=== PATIENT | male | born 1935 | race Caucasian/White ===

== ENCOUNTER 2018-02-18 07:26 | Emergency (ER) | payer OTHER ==
[~2018-02-18] VITALS: Ht 172.7 cm; Wt 76.2 kg
[2018-02-18 07:26] VITALS: BP_SYST 153
--- NOTE | 2018-02-18 07:26 | NUR ---
BROUGHT BACK TO BED #6 AND TRIAGED, REPORT GIVEN TO AGNIESZKA
--- NOTE | 2018-02-18 07:43 | NUR ---
PT AAOX4, ABLE TO VERBALIZE NEEDS. PT C/O PAIN AND DIFFICULTY W/ MOVEMENT OF JAW. PT STATES HE WENT TO URGENT CARE LAST FRIDAY AND WAS DIAGNOSED WITH TMJ AND GIVEN PAIN MEDS AND MUSCLE RELAXERS BUT IS STILL HAVING PAIN. PT STATES HX OF HTN.
--- NOTE | 2018-02-18 07:57 | NUR ---
ER at bedside examining patient.
[2018-02-18] MEDS ORDERED: HYDROcodone/ACETAMIN 5-325 MG TAB (NORCO/ VICODIN) PO ONE (08:15)
[2018-02-18] MEDS ORDERED: NS 500 ML IV ONE (08:15)
--- NOTE | 2018-02-18 08:59 | NUR ---
RECIEVED CALL FROM LAB. TECH TO REDRAW LABS D/T HEMOLYSIS OF BLOOD SAMPLE. NOTIFIED.
[2018-02-18] MEDS ORDERED: IOHEXOL 100 ML IV ONE (09:50)
--- NOTE | 2018-02-18 09:58 | NUR ---
LAB AT BEDSIDE TO [facility]RAW LABS.
[2018-02-18 10:16] LABS: ANION GAP 4 (5-15); CALCIUM 8.9 mg/dL (8.4-11.0); CHLORIDE 102 mmol/L (98-107); CREATININE 0.93 mg/dL (0.55-1.30); GLUCOSE 91 mg/dL (70-99); POTASSIUM 4.4 mmol/L (3.5-5.1); SODIUM SERUM 136 mmol/L (136-145); UREA NITROGEN, BLOOD 21 mg/dL (8-21)
[2018-02-18 10:24] LABS: ALANINE AMINOTRANSFERASE 21 U/L (12-78); ALBUMIN 2.8 g/dL (3.4-4.8); ASPARTATE AMINOTRANSFERASE 17 U/L (10-37); TOTAL BILIRUBIN 0.4 mg/dL (0.0-1.0)
--- NOTE | 2018-02-18 10:38 | NUR ---
PT TAKEN OFF UNIT FOR CT, ACCOMPANIED BY DRIVER'S LICENSE EXAMINER.
--- NOTE | 2018-02-18 10:57 | NUR ---
PT BACK ON UNIT FROM CT.
--- NOTE | 2018-02-18 12:29 | NUR ---
Pt resting at this time , eyes closed, patient states pain improving at this time. VS WNL.
[2018-02-18 13:24] VITALS: BP_SYST 146
--- NOTE | 2018-02-18 13:24 | NUR ---
Patient given written and verbal discharge instructions and verbalizes understanding. ER MD discussed with patient the results and treatment provided. Patient in stable condition. ID arm band removed. IV catheter removed intact and dressing applied, no active bleeding. Rx of NORCO given. Patient educated on pain management and to follow up with PMD. Pain Scale 0/10. Opportunity for questions provided and answered. Medication side effect fact sheet provided.
== END 2018-02-18 13:24 | disposition home or self-care (01) ==
LOC: SED 07:26
DX: M26.621 Arthralgia of right temporomandibular joint (principal); I10 Essential (primary) hypertension
CPT/HCPCS: 36415; 70487; 80053; 93005; 99285; J7030; Q9967

== ENCOUNTER 2020-01-16 17:28 | Emergency (ER) | payer OTHER ==
[~2020-01-16] VITALS: Ht 175.3 cm; Wt 77.1 kg
[2020-01-16 17:36] VITALS: BP_SYST 124
[2020-01-16 19:02] LABS: ANION GAP 6 (5-15); CALCIUM 8.8 mg/dL (8.4-11.0); CHLORIDE 102 mmol/L (98-107); CREATININE 0.95 mg/dL (0.55-1.30); GLUCOSE 88 mg/dL (70-99); POTASSIUM 4.7 mmol/L (3.5-5.1); SODIUM SERUM 135 mmol/L (136-145); UREA NITROGEN, BLOOD 24 mg/dL (8-21)
[2020-01-16 19:03] LABS: HEMATOCRIT 40.6 % (36-54); MONOCYTES # (AUTO) 0.8 K/uL (0.0-1.0); RED CELL DISTRIBUTION WIDTH 14.6 % (9.0-15.0)
[2020-01-16 19:09] LABS: BASOPHILS # (AUTO) 0.1 K/uL (0.0-0.2); BASOPHILS % (AUTO) 0.9 % (0.0-2.0); EOSINOPHILS # (AUTO) 0.2 K/uL (0.0-0.4); EOSINOPHILS % (AUTO) 1.5 % (0.0-4.0); HEMOGLOBIN 13.3 g/dL (14.0-18.0); LYMPHOCYTES # (AUTO) 1.6 K/uL (1.0-5.5); MEAN CORPUSCULAR HEMOGLOBIN 31 pg (27-31); MEAN CORPUSCULAR HGB CONC 33 % (32-36); MEAN CORPUSCULAR VOLUME 93 fL (79.0-98.0); MONOCYTES % (AUTO) 7.9 % (1.7-9.3); NEUTROPHILS # (AUTO) 7.6 K/uL (1.8-7.7); NEUTROPHILS % (AUTO) 73.7 % (40.0-70.0); RED BLOOD CELL COUNT(AUTO) 4.37 MIL/uL (4.2-6.2); WHITE BLOOD COUNT (AUTO) 10.3 K/uL (4.8-10.8)
[2020-01-16 19:14] LABS: ALANINE AMINOTRANSFERASE 17 U/L (12-78); ALBUMIN 3.3 g/dL (3.4-4.8); ASPARTATE AMINOTRANSFERASE 23 U/L (10-37); BILIRUBIN,DIRECT 0.1 mg/dL (0.0-0.3); LIPASE 138 U/L (73-393); TOTAL BILIRUBIN 0.5 mg/dL (0.0-1.0)
[2020-01-16] MEDS ORDERED: metroNIDAZOLE 500 mg/NS 100 ML IV ONE (19:15)
[2020-01-16] MEDS ORDERED: cefTRIAXone 1 GM in D5W 50 ML IV ONE (19:15)
[2020-01-16 19:19] LABS: PLATELET COUNT (AUTO) 300 K/uL (130-430)
[2020-01-16] MEDS ORDERED: cefTRIAXone 1 GM VIAL ONE (20:04)
[2020-01-16 22:15] VITALS: BP_SYST 164
== END 2020-01-16 22:15 | disposition short-term general hospital (02) ==
LOC: SED 17:28
DX: K35.80 Unspecified acute appendicitis (principal)
CPT/HCPCS: 36415; 74176; 80048; 80076; 83605; 83690; 84484; 85025; 87040; 96365; 96368; 99285; J0696; J3490